=== PATIENT | female | born 1960 | race Caucasian/White ===

== ENCOUNTER 2018-07-18 19:55 | Emergency (ER) | payer OTHER, SELFPAY ==
[2018-07-18 19:58] VITALS: BP 134/74; PULSE 71; RESP 20; TEMP 36.1
[2018-07-18 20:02] VITALS: O2SAT 100
--- NOTE | 2018-07-18 20:03 | DI.RAD.S_ITS ---
PROCEDURE: XR RIBS LT MIN 3V W CXR1V INDICATIONS: fall, lt rib pain, difficulty breathing TECHNIQUE: 2 views of the left ribs were acquired, along with a single view chest. COMPARISON: None. FINDINGS: Surgical changes and devices: None. Bones and chest wall: No fractures or dislocations. No suspicious bony lesions. Overlying soft tissues appear unremarkable. Lungs and pleura: No pleural effusions or pneumothorax. Lungs appear clear. Mediastinum: Mediastinal contours appear normal. Heart size is normal. IMPRESSION: No displaced rib fractures visualized. Dictated by: Minerva Flores M.D. on 07/18/2018 at 20:25 Approved by: Minerva Flores M.D. on 07/18/2018 at 20:26
[2018-07-18 21:18] VITALS: BP 125/75; PULSE 64; RESP 14; O2SAT 100
--- NOTE | 2018-07-18 22:03 | PC.NURSE ---
fell into handrail struck lt side ribs c/o worsening lt rib pain today radiates to upper chest/back lung sounds clear no contusion/deformity or other visual sign of injury
--- NOTE | 2018-07-18 23:10 | ED.CHESTPAIN ---
HPI - Chest Pain General Chief Complaint: Extremity Injury, Upper Stated Complaint: fall Thursday, left side rib pain Time Seen by Provider: 07/18/18 22:58 Source: patient and family (daughter) Mode of arrival: ambulatory Limitations: no limitations History of Present Illness HPI narrative: This is a 58-year-old female comes to the emergency department with complaint of left-sided rib pain. Patient states that on the she was at work. She was walking when her foot slipped on the edge of a stair and she fell into it this tear post on her left side. Patient states she did not fall down the stairs. She did not hit her head she has no neck or back pain. Her pain is the left ribs below the armpit and into the side. She has not noticed any bruising or skin color changes. It is painful to take a deep breath. 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 She has not taken anything for pain. She states movement such as moving her arm above her head, rotating her arm or washing or cleaning things with that side is quite uncomfortable. If she coughs or sneezes it is also quite painful. She has not had any difficulty breathing otherwise. She is not coughing anything up. No passing out. No other GI or urinary issues. Related Data Allergies Allergy/AdvReac Type Severity Reaction Status Date / Time codeine AdvReac Verified 07/18/18 20:01 Review of Systems Review of Systems All systems reviewed & are unremarkable except as noted in HPI and below ENT Ears, Nose, Mouth, and Throat: Denies neck pain Cardiovascular Reports chest pain, Denies syncope, Denies rapid heart rate, Denies radiating jaw, neck or arm pain and Denies dyspnea Respiratory Denies chest congestion, Denies cough, Denies hemoptysis, Reports pain on inspiration, Reports pain with cough, Denies dyspnea and Denies wheezing Gastrointestinal Gastrointestinal: Denies abdominal pain, Denies diarrhea, Denies nausea and Denies vomiting Musculoskeletal Denies back pain, Denies arthralgias, Reports limited range of motion, Denies muscle weakness, Denies neck pain, Denies numbness and Denies radiating pain into limb Integumentary/Breasts Denies rash, Denies unusual bruising and Denies wounds Neurologic Denies syncope and Denies numbness Allergic/Immunologic Denies wheezing Exam Narrative Exam Narrative: GENERAL: Alert and oriented x three, thin, well-appearing female in mild distress. HEENT: Head normocephalic, atraumatic, EOMI, pupils reactive, face symmetric, moist mucous membranes NECK: Supple, full range of motion CARDIOVASCULAR: Regular rate and rhythm without murmurs, rubs or gallops. RESPIRATORY: Breath sounds equal bilaterally, no wheezes rales or rhonchi. Patient does not have any bruising or skin color changes to the chest or back. She does have some tenderness over the rib 5 and 6 region on the lateral ankle. No crepitus, no subcutaneous emphysema is. ABDOMEN: Soft, nontender. Normoactive bowel sounds all 4 quadrants. No guarding or rebound, rigidity, no mass BACK: No cervical, thoracic or lumbar vertebral point tenderness. Patient has normal range of motion. Muscle strength is 5/5 in upper and lower extremities. EXTREMITIES: Normal range of motion, no clubbing or edema. Neurovascularly intact NEUROLOGICAL: Cranial nerves II through XII grossly intact. Moving all extremities SKIN: Warm, dry, no petechiae, no rashes or lesions. Initial Vital Signs Initial Vital Signs: Vital Signs Temperature 97.0 F L 07/18/18 19:58 Pulse Rate 71 07/18/18 19:58 Respiratory Rate 20 07/18/18 19:58 Blood Pressure 134/74 07/18/18 19:58 Course Orders Ordered: ED Orders 07/18/18 20:03 XR ribs LT min 3V w CXR1V Stat Vital Signs - 8 hr 07/18/18 19:58 07/18/18 20:02 07/18/18 21:18 Temperature 97.0 F L Pulse Rate 71 64 Respiratory Rate 20 14 Blood Pressure 134/74 Blood Pressure [Right Arm] 125/75 Pulse Oximetry 100 100 MDM - Chest Pain Imaging Data Ribs w/ CXR: Radiologist's impression: [address] [address] XRay Report Signed Patient: Shital Deal LMR#: [id number] : 1Acct:[id number] Age/Sex: 58 / FDate of Service: 07/18/18 Loc: ED Accession Number: [id number] Procedure: XR ribs LT min 3V w CXR1V Ordering Provider: Chinmay Sibley PROCEDURE: XR RIBS LT MIN 3V W CXR1V INDICATIONS: fall, lt rib pain, difficulty breathing TECHNIQUE: 2 views of the left ribs were acquired, along with a single view chest. COMPARISON: None. FINDINGS: Surgical changes and devices: None. Bones and chest wall: No fractures or dislocations. No suspicious bony lesions. Overlying soft tissues appear unremarkable. Lungs and pleura: No pleural effusions or pneumothorax. Lungs appear clear. Mediastinum: Mediastinal contours appear normal. Heart size is normal. IMPRESSION: No displaced rib fractures visualized. Dictated by: Minerva Flores M.D. on 07/18/2018 at 20:25 Approved by: Minerva Flores M.D. on 07/18/2018 at 20:[address] [facility] Narrative Medical decision making narrative: Clinically patient appears to be rib fracture. Chest x-ray does not show any pneumothorax no clear rib fractures better displaced. Patient defers any prescription medication for pain. She was at work when this occurred so discussed that she may wish to fill out L and I form and was referred to registration. She was given incentive spirometer. Also discussed that she can splint with a pillow for similar object when she cough is or sneezes. Discharge Plan Departure Patient Disposition: Home Clinical Impression: Closed rib fracture Discharge Date/Time: 07/19/18 00:36 Interventions: ED Discharge Assessment Last Done: 07/19/18 00:09 Instructions: DI for Rib Fracture Activity Restrictions/Additional Instructions: Follow-up with for recheck in the next 5-7 days if you're not having any improvement in symptoms. You may take ibuprofen and/or Tylenol as needed for pain. Use incentive spirometer once hourly. Use a pillow or similar object to splinter side if you're going to cough, sneeze or take deep inhalations. Return to the emergency department for fevers, new shortness of breath, chest pain that is spreading, for coughing up blood or having other new or concerning symptoms.
--- NOTE | 2018-07-19 09:18 | PC.NURSE ---
pt arrived to ed, wanting note for no workfor 2 days, given by dr. yost
== END 2018-07-19 00:36 | disposition home or self-care (01) ==
PROVIDERS: Emergency Provider Emergency Medicine; PCP Family Medicine
DX: S22.32XA Fracture of one rib, left side, initial encounter for closed fracture (principal); W01.198A Fall on same level from slipping, tripping and stumbling with subsequent striking against other object, initial encounter
CPT/HCPCS: 71101; 99282; 99283

== ENCOUNTER 2019-03-25 22:00 | Emergency (ER) | payer OTHER, MEDICAID, SELFPAY ==
[2019-03-25 22:05] VITALS: BP 125/78; PULSE 52; RESP 18; TEMP 36.5; O2SAT 100; BMI 22.1
[2019-03-25 22:08] VITALS: BP 125/78; PULSE 62; RESP 15; TEMP 36.5; O2SAT 100
--- NOTE | 2019-03-25 22:18 | ED.WOUNDLAC ---
HPI - Wound/Laceration General Chief Complaint: Wound/Laceration Stated Complaint: RIGHT HAND INDEX FINGER HAS GLASS IN IT Time Seen by Provider: 03/25/19 22:18 Source: patient Mode of arrival: ambulatory Limitations: no limitations History of Present Illness HPI narrative: Patient is a 58-year-old female here for evaluation of an injury she sustained to her right index finger. Patient states that a wine glass broke and she was using the towel that the glass was in and she thinks that she has a piece of glass stuck in the end of her finger. Related Data Allergies Allergy/AdvReac Type Severity Reaction Status Date / Time codeine AdvReac Verified 07/18/18 20:01 Review of Systems Musculoskeletal Denies myalgias, Denies arthralgias and Denies tingling Integumentary/Breasts Comments: Piece of glass stuck in the right index finger Neurologic Denies tingling Hematologic/Lymphatic Denies easy bleeding and Denies easy bruising PFSH Surgical History No pertinent past surgical history (Acute) Social History lives independently: Yes Exam Initial Vital Signs Initial Vital Signs: Vital Signs Temperature 97.7 F 03/25/19 22:05 Pulse Rate 52 L 03/25/19 22:05 Respiratory Rate 18 03/25/19 22:05 Blood Pressure 125/78 03/25/19 22:05 Pulse Oximetry 100 03/25/19 22:05 Const General: cooperative, comfortable, well developed and well groomed Skin Lesions: no lesions Rashes: no rashes Neuro Sensory Exam: no sensory deficits noted Extrem General: normal to inspection and capillary refill normal Course Vital Signs - 8 hr 03/25/19 22:05 03/25/19 22:08 03/25/19 22:54 Temperature 97.7 F 97.7 F 97.5 F L Pulse Rate 52 L 62 56 L Respiratory Rate 18 15 18 Blood Pressure 125/78 106/59 L Blood Pressure [Right Arm] 125/78 Pulse Oximetry 100 100 56 L MDM - Wound/Laceration MDM Narrative Medical decision making narrative: Unable to realize any foreign body under magnification of the right index finger. It does appear that she has the nail from the nail bed at the very distal aspect of the index finger. I suspect this may be causing her discomfort. No x-ray warranted. No antibiotic warranted. Patient was given return precautions and follow-up instructions. She expressed understanding and agreement with plan. Discharge Plan Departure Patient Disposition: Home Clinical Impression: Nailbed injury Discharge Date/Time: 03/25/19 22:55 Interventions: ED Discharge Assessment Last Done: 03/25/19 22:54 Activity Restrictions/Additional Instructions: You can wash your hands like normal. You can use soap and water like normal. Use the tape like we discussed. Return to the emergency department for any new or worsening symptoms Referrals: Derrick Bradley MD [Primary Care Provider] -
[2019-03-25 22:54] VITALS: BP 106/59; PULSE 56; RESP 18; TEMP 36.4; O2SAT 56
== END 2019-03-25 22:55 | disposition home or self-care (01) ==
PROVIDERS: Emergency Provider Emergency Medicine; PCP Family Medicine
DX: S61.346A Puncture wound with foreign body of right little finger with damage to nail, initial encounter (principal); W25.XXXA Contact with sharp glass, initial encounter; W45.8XXA Other foreign body or object entering through skin, initial encounter
CPT/HCPCS: 99282; 99283

== ENCOUNTER → 2020-06-29 09:53 | Outpatient (CLI) | payer OTHER, MEDICAID, SELFPAY ==
[2020-06-29 12:34] LABS: Hemoglobin A1C% w Est Avg Glu 5.4 % (4.0-6.0)
[2020-06-29 12:52] LABS: Cholesterol 180 mg/dL (140-199); HDL Cholesterol 91 mg/dL (40-60); LDL Cholesterol Calculated 80 mg/dL (<100); Triglycerides 43 mg/dL (35-150)
[2020-06-29 13:09] LABS: Vitamin D 25 Hydroxy (D3) 29.1 ng/mL (30.0-100.0)
[2020-06-29 13:47] LABS: Hep C Virus Ab w/Reflex Quant NEGATIVE s/c (NEGATIVE)
== END ==
PROVIDERS: PCP Family Medicine; Referring Provider Family Medicine; Visit Provider Family Medicine
DX: Z00.01 Encounter for general adult medical examination with abnormal findings (principal)
CPT/HCPCS: 36415; 80061; 82306; 83036; 86803

== ENCOUNTER → 2020-07-27 09:45 | Outpatient (CLI) | payer OTHER, MEDICAID, SELFPAY | PROVIDERS: PCP Family Medicine; Referring Provider Family Medicine; Visit Provider Family Medicine | DX: Z13.820 Encounter for screening for osteoporosis (principal); M85.88 Other specified disorders of bone density and structure, other site; Z78.0 Asymptomatic menopausal state | CPT/HCPCS: 77080 ==

== ENCOUNTER 2021-04-29 21:11 | Emergency (ER) | payer OTHER, MEDICAID, SELFPAY ==
[2021-04-29 21:13] VITALS: BP 130/72; PULSE 74; RESP 16; TEMP 36; O2SAT 95; BMI 24.3
--- NOTE | 2021-04-29 22:58 | ED.SKABFB ---
HPI - Skin/Abscess/Foreign Bdy General Chief complaint: Skin/Abscess/Foreign Body Stated complaint: Spider bite on Lt arm Time Seen by Provider: 04/29/21 21:29 Source: patient Mode of arrival: Ambulatory History of Present Illness HPI narrative: 61-year-old female nonsmoker with history of vitamin-D deficiency presents with a chief complaint of a mildly painful skin lesion on the dorsum of her left forearm that has been present for the past few days. She states she thinks it initially had 2 small fang hess essentially but is now scab about the size of a dime. She denies any obvious injury or memory of a specific spider or insect bite. She denies any systemic symptoms such as fever, chills nor nausea or vomiting. She has no chest pain or shortness of breath. She denies any swelling, induration, fluctuance or red streaks. She is concerned because she has a person she works with says he had a family member with a spider bite that got really infected and required surgery. Related Data Home Medications Medication Instructions Recorded Confirmed No Known Home Medications 06/28/20 10/08/20 Allergies Allergy/AdvReac Type Severity Reaction Status Date / Time codeine AdvReac Verified 04/29/21 21:16 Review of Systems Review of Systems Narrative: GENERAL: Denies chills, fatigue, malaise, fever, sweats. HEENT: Denies sinus pain, ear pain, sore throat, difficulty swallowing, dizziness. RESPIRATORY: Denies dyspnea, cough, wheezing, hemoptysis, sputum. CARDIOVASCULAR: Denies chest pain, palpitations, orthopnea, edema, GASTROINTESTINAL: Denies nausea, vomiting, abdominal pain, diarrhea, constipation, melena. : Denies dysuria, frequency, incontinence, hematuria, urinary retention. MUSCULOSKELETAL: denies weakness, joint pain, or bony pain SKIN: See HPI NEUROLOGIC: Denies weakness, headache, numbness, change in speech, confusion, seizures, incoordination. PSYCHIATRIC: No concerning psychosocial issues. 12 point review of systems is negative except for those stated above Patient History Medical History Low back pain radiating to left lower extremity Muscle spasm Neck pain Overweight (BMI 25.0-29.9) Vitamin D deficiency Wound, open, ear, Eustachian tube Surgical History No pertinent past surgical history Family History Sister Cancer Mother Cancer Social History lives independently: Yes Smoking Status: Never smoker alcohol intake: never substance use type: does not use Smoking Status: Never smoker Substance Use Type: does not use Exam Narrative Exam Narrative: GEN: AOx3 and in mild distress EYES: Pupils are equal, round, and reactive to light and accommodation. Extraoccular muscles are intact bilaterally. There is no subconjunctival hemorrhage or exudate. CHEST: Lungs are clear to auscultation bilaterally and free of wheezes, rales, or rhonchi. Heart rate is regular rhythm, there are no murmurs, clicks, rubs, or gallops. There is no chest wall tenderness. ABD: Abdomen is soft and nontender. There is no guarding or rebound. Bowel sounds are normal in all 4 quadrants. There is no mass or organomegaly. EXT: Full painless ROM of all extremities with no loss of sensation or strength. SKIN: 1 x 1 cm painless scabbed lesion on dorsum of left forearm without induration, fluctuance, drainage or red streaks. Warm, pink, and dry. No erythema or rash Initial Vital Signs Initial Vital Signs: Vital Signs Temperature 96.8 F L 04/29/21 21:13 Pulse Rate 74 04/29/21 21:13 Respiratory Rate 16 04/29/21 21:13 Blood Pressure 130/72 04/29/21 21:13 Pulse Oximetry 95 04/29/21 21:13 Course Orders Ordered: Discontinued Medications Bacitracin (Bacitracin Oint 0.9 Gm Pckt) 1 applic TOP NOW ONE Stop: 04/29/21 23:09 Last Admin: 04/29/21 23:14 Dose: 1 applic Documented by: AUXIMENA Vital Signs Vital signs: Vital Signs - 8 hr 04/29/21 23:25 Pulse Rate 58 L Respiratory Rate 16 Blood Pressure 105/56 L Pulse Oximetry 100 MDM - Skin/Abscess/Foreign Bdy MDM Narrative Medical decision making narrative: Patient has a small, scabbed lesion on her forearm without any pain, induration, fluctuance or drainage. There is no surrounding erythema or red streaks. There is no evidence of ulceration. Return precautions given and questions answered to her apparent satisfaction Discharge Plan Departure Patient Disposition: Home Clinical Impression: Spider bite Qualifiers: Encounter type: initial encounter Injury intent: undetermined intent Qualified Code(s): T63.304A - Toxic effect of unspecified spider venom, undetermined, initial encounter Instructions: DI for Insect Bites and Stings Activity Restrictions/Additional Instructions: *You have been diagnosed with [spider bite with very reassuring exam, localized reaction] *What to do: *Please consider the use of a triple antibiotic ointment such as Neosporin applied twice daily for the next few days. *Please follow up with your primary care provider in 2-3 days, call for an appointment. Let them know you were seen in the Emergency Department and that we ask that you be seen in follow up. We will electronically transmit a record of today's note if your PCP is in our system *If you do not have a primary care provider please contact the [facility] Resource line at [phone]. They will ask some questions about your medical history and help get you set up with a doctor in the community. *Return to Emergency Department if you should have any new, worsening or concerning symptoms, such as [fever greater than 101 F, shaking chills, worsening pain, persistent vomiting or other bothersome symptoms] Prescriptions: No Action No Known Home Medications RF: 0 Referrals: Serafin Velazquez MD [Primary Care Provider] -
[2021-04-29] MEDS: BACITRACIN OINT 0.9 GM PCKT 1 APPLIC TOP (23:14)
[2021-04-29 23:25] VITALS: BP 105/56; PULSE 58; RESP 16; O2SAT 100
--- NOTE | 2021-04-29 23:25 | PC.NURSE ---
Bacitracin applied to L forearm and covered with gauze and gauze wrap
== END 2021-04-29 23:25 | disposition home or self-care (01) ==
PROVIDERS: Emergency Provider Emergency Medicine; PCP Family Medicine
DX: T63.304A Toxic effect of unspecified spider venom, undetermined, initial encounter (principal)
CPT/HCPCS: 99282

== ENCOUNTER 2022-02-11 09:31 | Emergency (ER) | payer OTHER, MEDICAID, SELFPAY ==
[2022-02-11 09:35] VITALS: BP 132/61; PULSE 63; RESP 16; TEMP 36.7; O2SAT 98; BMI 24.1
--- NOTE | 2022-02-11 09:52 | DI.RAD.S_ITS ---
PROCEDURE: XR HIP W PEL IF DONE LT 2V INDICATIONS: on going pain no recent injury TECHNIQUE: AP pelvis with lateral view(s) of the left hip(s). COMPARISON: [facility], , XR PELVIS WITH LATERAL HIP LEFT, 06/01/2019, 13:26. FINDINGS: Bones: No fractures or dislocations. Pelvic ring appears intact. No suspicious bony lesions. Soft tissues: The visualized bowel gas pattern is normal. No suspicious soft tissue calcifications. IMPRESSION: No acute fracture. No osseous lesion. If symptoms and/or clinical suspicion for pathology persist, further assessment with repeat, or advanced imaging (e.g., CT, MRI, or bone scan) may be helpful for further assessment. Dictated by: Lisa Norris M.D. on 02/11/2022 at 10:11 Approved by: Lisa Norris M.D. on 02/11/2022 at 10:12
--- NOTE | 2022-02-11 09:53 | ED_ITS ---
HPI - Extremity Injury (Lower) General Chief Complaint: Extremity Injury, Lower Stated Complaint: Varicose vein hurts, hip pain Time Seen by Provider: 02/11/22 09:46 Source: patient Mode of arrival: Ambulatory History of Present Illness HPI Narrative: Patient is a 61-year-old female who has history of chronic ongoing back issues presenting today with pain in her left hip radiating down to her toes. It appears that she has been seen by her primary care provider for this few times. She states that she has not had any injury. She has pain from her left hip all the way down to her toes. She says a few days ago she mopped the floor 3 times and then had to clean up the dog mass. She has not taken any Tylenol or ibuprofen. She feels like she has numbness in her 3rd and 4th toe. It does not hurt to move. She denies any back pain. Related Data Home Medications Medication Instructions Recorded Confirmed No Known Home Medications 06/28/20 07/15/21 Allergies Allergy/AdvReac Type Severity Reaction Status Date / Time codeine AdvReac Verified 07/15/21 15:02 Review of Systems Review of Systems Narrative: GENERAL: Denies chills,fever HEENT: Denies throat pain RESPIRATORY: Denies dyspnea, cough, wheezing CARDIOVASCULAR: Denies chest pain, palpitations GASTROINTESTINAL: Denies nausea, vomiting MUSCULOSKELETAL: See HPI SKIN: No rash, no laceration, no pruritus NEUROLOGIC: Denies weakness, dizziness, headache, numbness 8 point review of systems is negative except for those stated above and HPI Patient History Medical History Low back pain radiating to left lower extremity Muscle spasm Neck pain Overweight (BMI 25.0-29.9) Vitamin D deficiency Wound, open, ear, Eustachian tube Surgical History No pertinent past surgical history Family History Sister Cancer Mother Cancer Social History lives independently: Yes Smoking Status: Never smoker alcohol intake: never substance use type: does not use Smoking Status: Never smoker Substance Use Type: does not use Exam Initial Vital Signs Initial Vital Signs: Vital Signs Temperature 98.1 F 02/11/22 09:35 Pulse Rate 63 02/11/22 09:35 Respiratory Rate 16 02/11/22 09:35 Blood Pressure 132/61 02/11/22 09:35 Pulse Oximetry 98 02/11/22 09:35 GENERAL: Alert well-appearing 7-year-old female CARDIOVASCULAR: peripheral pulses in tact, cap refill <2 sec RESPIRATORY: No respiratory distress, speaks in full sentences without difficulty EXTREMITIES: Normal range of motion, no clubbing or edema. Neurovascularly intact Left hip pain with internal rotation legs are of equal length distal pedal pulses intact. NEUROLOGICAL: Cranial nerves II through XII grossly intact. Normal gait and speech. SKIN: Warm, dry, no petechiae, no rashes or lesions. Course Orders Ordered: ED Orders 02/11/22 09:52 XR hip w pel if done LT 2V Stat Vital Signs Vital signs: Vital Signs - 8 hr 02/11/22 09:35 02/11/22 10:43 Temperature 98.1 F Pulse Rate 63 64 Respiratory Rate 16 14 Blood Pressure 132/61 114/66 Pulse Oximetry 98 MDM - Extremity Injury (Lower) Imaging Data Extremity x-ray #1: Radiologist's Impression: [address] [place] [id number] XRay Report Signed Patient: Shital Deal MR#: [id number] : 1960 Acct:[id number] Age/Sex: 61 / F Date of Service: 02/11/22 Loc: ED Accession Number: [id number] ?? Procedure: XR hip w pel if done LT 2V Ordering Provider: Yvrose Ivy D.O. PROCEDURE:? XR HIP W PEL IF DONE LT 2V ? INDICATIONS:? on going pain no recent injury ? TECHNIQUE:? AP pelvis with lateral view(s) of the left hip(s).? ? COMPARISON:? [facility], [facility], XR PELVIS WITH LATERAL HIP LEFT, 06/01/2019, 13:26. ? FINDINGS:? ? Bones:? No fractures or dislocations.? Pelvic ring appears intact.? No suspicious bony lesions.? ? Soft tissues:? The visualized bowel gas pattern is normal.? No suspicious soft tissue calcifications.? ? ? IMPRESSION:? No acute fracture. No osseous lesion. If symptoms and/or clinical suspicion for pathology persist, further assessment with repeat, or advanced imaging (e.g., CT, MRI, or bone scan) may be helpful for further assessment. ? ? Dictated by: Lisa Norris M.D. on 02/11/2022 at 10:11 ? ? Approved by: Lisa Norris M.D. on 02/11/2022 at 10:12 ? MDM Narrative Medical decision making narrative: According to records patient has had ongoing back pain radiating down her left leg. Had any imaging. She has not taken anything for pain she is offered Toradol and ibuprofen here. She is unsure if she wants anything. Seems to be consistent with sciatic like pain. No changes in bowel or bladder habits or signs of cauda equina syndrome. At this time recommend light stretching physical therapy possibly outpatient MRI. Discharge Plan Departure Patient Disposition: Home Clinical Impression: Sciatica Qualifiers: Laterality: left Qualified Code(s): M54.32 - Sciatica, left side Instructions: DI for Sciatica Activity Restrictions/Additional Instructions: *You have been diagnosed with left-sided sciatic *What to do: At this time I recommend increasing activity as tolerated. Light stretching as well. You may need physical therapy. If this continues I do recommend an outpatient MRI. *Continue to take medications as directed Ibuprofen 600 mg every 6-8 hours if needed for [id number] pain Tylenol 650 mg every 4-6 hours if needed for [id number]-[id number] pain *Follow up with your primary care provider in 2-3 days or call [phone] *Return to ER if you should have increasing pain leg weakness loss of urine or any new, worsening or concerning symptoms Prescriptions: No Action No Known Home Medications 0RF Referrals: Serafin Velazquez MD [Primary Care Provider] -
[2022-02-11 10:43] VITALS: BP 114/66; PULSE 64; RESP 14
== END 2022-02-11 10:43 | disposition home or self-care (01) ==
PROVIDERS: Emergency Provider Emergency Medicine; PCP Family Medicine
DX: M54.32 Sciatica, left side (principal)
CPT/HCPCS: 73502; 99281; 99283

== ENCOUNTER → 2022-05-05 09:20 | Outpatient (CLI) | payer OTHER, MEDICAID, SELFPAY ==
[2022-05-05 11:15] LABS: COVID19 -Nasal RAPID Negative (Negative)
== END ==
PROVIDERS: PCP Family Medicine; Visit Provider Surgery
DX: Z20.822 Contact with and (suspected) exposure to COVID-19 (principal); Z01.812 Encounter for preprocedural laboratory examination
CPT/HCPCS: 87635; C9803

== ENCOUNTER 2022-05-06 10:19 | Day surgery (SDC) | payer OTHER, MEDICAID, SELFPAY ==
[2022-05-06] VITALS (7 sets, daily range): BP systolic 93–110; BP diastolic 46–68; PULSE 42–55; RESP 14–19; TEMP 36.2–36.9; O2SAT 98–100; BMI 23.6
--- NOTE | 2022-05-06 | PATH_ITS ---
[facility] Accession Number: [id number] . 01 Material submitted: . rectum - RECTAL POLYP . 01 Clinical history: . SDC . 01 Diagnosis: Rectal polyp, Biopsy: Tubular adenoma. [facility] 05/08/2022 1022 Local . 01 Electronically signed: . Harsh Rodrigues MD, PhD, Pathologist NPI- [id number] . 01 Gross description: . RECTAL POLYP: Received in formalin are 3 fragment(s) of buchanan, soft tissue measuring 0.7 x 0.4 x 0.4 cm to 0.3 x 0.2 x 0.2 cm submitted entirely in 1 cassette(s) /CPE 05/07/2022 0753 Local . 01 Pathologist provided ICD-10: D12.8 . 01 CPT . 126409 Specimen Comment: A courtesy copy of this report has been sent to [phone] Performed at: 01 [facility] [address] [place] [address], [place], [place] [id number] MD Femi Mckeon MD Phone: [phone]
[2022-05-06] MEDS: LACTATED RINGERS 1,000 ML 200 ML IV (10:49)
--- NOTE | 2022-05-06 11:00 | PM.HP.1 ---
History of Present Illness History of Present Illness Date Patient Seen: 05/06/22 Time Patient Seen: 11:00 Chief complaint: SDC Narrative: The patient presents for colorectal screening. They have never had any previous examination for such. No personal or family history of colon cancer. She has been having intermittent bright red blood per rectum painless. No nausea vomiting. No unintentional weight loss. Patient History Medical History Low back pain radiating to left lower extremity Muscle spasm Neck pain Overweight (BMI 25.0-29.9) Vitamin D deficiency Wound, open, ear, Eustachian tube Surgical History History of dilatation and curettage History of ear surgery Hx of knee surgery Family & Social History Family History Sister Cancer Mother Cancer Social History: household members family lives independently Yes Tobacco & Substance use: Smoking Status Never smoker alcohol intake never alcohol intake frequency other Substance Use Type does not use Meds Home Medications and Allergies Home Medications Medication Instructions Recorded Confirmed Type Vitamin D3 1 tab DAILY 05/06/22 05/06/22 History Allergies Allergy/AdvReac Type Severity Reaction Status Date / Time codeine AdvReac Verified 05/06/22 10:32 Exam Vital Signs (past 8 hours): - 05/06/22 10:46 Temperature 98.4 F Pulse Rate 55 L Respiratory Rate 16 Blood Pressure 106/68 Pulse Oximetry 100 Oxygen Delivery Method Room Air Oxygen Delivery Method Room Air Narrative Exam Narrative: General adult woman alert oriented no acute distress Abdomen soft nontender nondistended Assessment & Plan Assessment & Plan narrative: The patient requires colorectal screening and colonoscopy is recommended. Technical details were discussed. Risks, benefits, alternatives explained. Risks including but not limited to myocardial infarction, aspiration, bleeding, pain, missed lesion, incomplete examination, need for further radiographic studies, colonic perforation, and need for major abdominal surgery were discussed. All questions were answered to their satisfaction, and they are in agreement with this plan. Time Spent With Patient Critical Care time: I spent a total of [] minutes of critical care time on this patient's care today; this time is exclusive of procedural time.
[2022-05-06] MEDS: fentaNYL 250 MCG/5 ML INJ IV (11:48)
[2022-05-06] MEDS: MIDAZOLAM 5 MG/5 ML VIAL IV (11:48)
--- NOTE | 2022-05-06 11:52 | PM.OP.COLON ---
Operative Date/Time/Diagnoses Date of procedure: 05/06/22 Time of procedure: 11:52 Pre-op diagnosis: Screening/rectal bleeding Post-op diagnosis: same Procedure & Clinicians Study performed: Colonoscopy and polypectomy Same procedure as scheduled: Yes Indications: Screening, rectal bleeding Surgeon: Tor Carreon Procedure Notes Procedure in detail: Medications: Conscious sedation using a 7 mg IV midazolam and 200 mcg IV of fentanyl The history and physical was performed/updated and the patient is ASA class is 1. The procedure was discussed in detail with the patient. Potential risks complications including infection, bleeding, missed diagnosis, perforation, need for surgery, and were explained. Their questions were answered and informed consent was obtained. Patient was brought to the procedure room and placed standard monitoring equipment. The patient's vital signs were monitored continuously throughout the entire procedure. Prior to starting time-out was performed. The patient was placed in the left lateral recumbent position. Procedural sedation was administered. Examination began with a thorough inspection of the perianal area there was no evidence of fissures, fistulae, external hemorrhoids or cutaneous malignancy. The colonoscopy scope was then placed into the anal canal and was advanced to the cecum, which was identified by the ileocecal valve, the appendiceal orifice and the confluence of the taenia. The scope was then slowly withdrawn examining colon thoroughly in all directions, irrigating it of any residual stool. FINDINGS 1. Distal rectum-1 cm pedunculated polyp removed with hot snare 2. Normal healthy colon The patient tolerated the procedure well. They will be discharged once criteria are met. The prep was of good/excellent quality. The withdrawl time was 11 minutes. The sedation time was 35 minutes. Specimen(s): other (Rectal polyp) Complications: none Impression: Colonic polyp Post-procedure Recommendations: Colonoscopy in 5 years Disposition: same day surgery
== END 2022-05-06 12:33 | disposition home or self-care (01) ==
PROVIDERS: PCP Family Medicine; Referring Provider Surgery; Visit Provider Surgery
PROC: 0DJD8ZZ Inspection of Lower Intestinal Tract, Via Natural or Artificial Opening Endoscopic (ICD-10-PCS; CPT 45378; principal; 2022-05-06 11:15)
DX: D12.8 Benign neoplasm of rectum (principal)
CPT/HCPCS: 45385; 99152; 99153; J2250; J3010

== ENCOUNTER 2022-11-27 06:42 | Emergency (ER) | payer OTHER, MEDICAID, SELFPAY ==
[2022-11-27 06:52] VITALS: BP 109/64; PULSE 68; RESP 18; TEMP 36.6; O2SAT 100; BMI 24.9
--- NOTE | 2022-11-27 07:07 | ED_ITS ---
HPI - Fall General Chief Complaint: Fall Stated Complaint: fall yesterday left side pain Time Seen by Provider: 11/27/22 06:54 Source: patient Mode of arrival: Ambulatory History of Present Illness HPI Narrative: 62-year-old female presenting following a fall that occurred approximately 12 hours prior to presentation. Patient reports that she was getting now not the table onto a chair after cleaning chandelier, fell from the chair to the floor under the left side. Patient has pain localized to the left side of the chest, left wrist. Patient has been ambulatory. Related Data Home Medications Medication Instructions Recorded Confirmed Vitamin D3 1 tab DAILY 05/06/22 05/06/22 Allergies Allergy/AdvReac Type Severity Reaction Status Date / Time codeine AdvReac Verified 05/06/22 10:32 Patient History Medical History Low back pain radiating to left lower extremity Muscle spasm Neck pain Overweight (BMI 25.0-29.9) Vitamin D deficiency Wound, open, ear, Eustachian tube Surgical History History of dilatation and curettage History of ear surgery Hx of knee surgery Family History Sister Cancer Mother Cancer Social History household members: family lives independently: Yes Smoking Status: Never smoker alcohol intake: never substance use type: does not use Smoking Status: Never smoker alcohol intake frequency: other Substance Use Type: does not use Exam Narrative Exam Narrative: Vitals reviewed. Nursing note reviewed Constitutional: interactive HENT: Moist mucous membranes EYES: No scleral icterus NECK: no masses CV: Well perfused peripherally, no cyanosis present PULM: Unlabored respirations, symmetric chest rise ABD: Non-distended MS: No gross deformities, no asymmetric edema noted SKIN: Warm and dry. PSYCH: Appropriate affect NEURO: Follows simple commands, moves extremities, interactive with exam Initial Vital Signs Initial Vital Signs: Vital Signs Temperature 98 F 11/27/22 06:52 Pulse Rate 68 11/27/22 06:52 Respiratory Rate 18 11/27/22 06:52 Blood Pressure 109/64 11/27/22 06:52 Pulse Oximetry 100 11/27/22 06:52 Oxygen Delivery Method Room Air 11/27/22 06:52 Course Orders Ordered: ED Orders 11/27/22 07:14 CXR [XR chest 2V] Stat XR wrist LT min 3V Stat Discontinued Medications Ketorolac Tromethamine (Ketorolac 30 Mg/Ml Vial) 30 mg IM NOW ONE Stop: 11/27/22 07:36 Last Admin: 11/27/22 07:41 Dose: 30 mg Documented By: RINA Vital Signs Vital signs: Vital Signs - 8 hr 11/27/22 06:52 Temperature 98 F Pulse Rate 68 Respiratory Rate 18 Blood Pressure 109/64 Pulse Oximetry 100 Oxygen Delivery Method Room Air MDM - Fall Lab Data Labs: Urine Dip Bedside Urine Glucose Negative Bedside Urine Bilirubin - Negative Bedside Urine Ketone - Negative Urine Specific [place] 1.015 Bedside Urine Occult Blood - Negative Bedside Urine pH 7.0 Bedside Urine Protein - Negative Bedside Urine Urobilinogen - Negative Bedside Urine Nitrite - Negative Bedside Urine Leukocytes - Negative Esterase MDM Narrative Medical decision making narrative: 62-year-old female presenting with pain localized to the left chest after a fall that occurred 12 hours not to presentation. On presentation, vital signs reassu ring as above. Physical exam notable for well-appearing 62-year-old female who is in no acute distress, grossly reassuring cardiopulmonary exam, benign abdomen, focal tenderness over the left lateral chest wall, left wrist. Initial concern for acute traumatic injury including fracture, dislocation, pneumothorax, solid organ injury, MSK strain. Two-view chest x-ray and x-ray left wrist obtained to further evaluate for acute traumatic injury. Patient did not require oxygen in the emergency department. X-rays without evidence of acute traumatic injury. Given patient's persistent pain localized to the left lateral chest wall and left wrist, discussed plan for supportive cares with incentive spirometry, close outpatient follow up. Discussed possibility of occult rib fracture/nondisplaced rib fracture. Patient was placed in a thumb spica splint and instructed to follow up for repeat x-ray in 1 week. Discussed possibility of occult wrist fracture and importance of outpatient follow up for repeat x-ray in approximately 1 week. Return precautions discussed. Discharge Plan Departure Patient Disposition: Home Clinical Impression: Rib pain on left side, Acute wrist pain Activity Restrictions/Additional Instructions: *You have been diagnosed with rib pain and wrist pain after fall. *What to do: Please use your incentive spirometer as discussed. Your xray was reassuring but you may have occult rib fractures as discussed. Please return to the emergency department if you develop worsening shortness of breath/productive cough/fevers. Please follow up with within 1 week for repeat x-ray of your left wrist, as discussed, you may have an occult fracture. Please use the wrist splint as discussed. *Please follow up with your primary care provider in 2-3 days, call for an appointment. Let them know you were seen in the Emergency Department and that we ask that you be seen in follow up. We will electronically transmit a record of today's note if your PCP is in our system *Return to Emergency Department if you should have any new, worsening or concerning symptoms, such as [fever greater than 101 F, shaking chills, worsening pain, persistent vomiting or other bothersome symptoms] Prescriptions: No Action Vitamin D3 1 tab DAILY Patient Comments: takes when remembers it Referrals: Serafin Velazquez MD [Primary Care Provider] - Stand Alone Forms: Patient Portal/API
--- NOTE | 2022-11-27 07:14 | DI.RAD.S_ITS ---
PROCEDURE: XR WRIST LT MIN 3V INDICATIONS: wrist pain, eval fx TECHNIQUE: 4 views of the wrist were acquired. COMPARISON: None. FINDINGS: Bones: No fractures or dislocations. No suspicious bony lesions. Soft tissues: No suspicious soft tissue calcifications. IMPRESSION: No acute osseous abnormality identified. Dictated by: Kelvin Hargrove M.D. on 11/27/2022 at 8:22 Approved by: Kelvin Hargrove M.D. on 11/27/2022 at 8:24
--- NOTE | 2022-11-27 07:14 | DI.RAD.S_ITS ---
PROCEDURE: XR CHEST 2V INDICATIONS: eval rib fx TECHNIQUE: 2 views of the chest were acquired. COMPARISON: None. FINDINGS: Surgical changes and devices: None. Lungs and pleura: Lungs are clear. No pleural effusions or pneumothorax. Mediastinum: Mediastinal contours are normal. Heart size is normal. Bones and chest wall: No suspicious bony abnormalities. Soft tissues appear unremarkable. IMPRESSION: No acute cardiopulmonary abnormality. Dictated by: Kelvin Hargrove M.D. on 11/27/2022 at 8:24 Approved by: Kelvin Hargrove M.D. on 11/27/2022 at 8:24
[2022-11-27] MEDS: KETOROLAC 30 MG/ML VIAL IM (07:41)
[2022-11-27 08:59] VITALS: BP 131/67; PULSE 59; RESP 16; O2SAT 100
--- NOTE | 2022-11-27 09:01 | PC.NURSE ---
Left thumb wrist splint applied to pt per verbal order and pt given incentive spirometer. Pt demonstrated proper use of IS and instructed to use 10x per hour for PNA prevention.
== END 2022-11-27 09:02 | disposition home or self-care (01) ==
PROVIDERS: Emergency Provider Emergency Medicine; PCP Family Medicine
DX: R07.81 Pleurodynia (principal); M25.532 Pain in left wrist; W07.XXXA Fall from chair, initial encounter
CPT/HCPCS: 71046; 73110; 81003; 96372; 99283; J1885

== ENCOUNTER → 2022-12-05 15:30 | Outpatient (CLI) | payer OTHER, MEDICAID, SELFPAY ==
--- NOTE | 2022-12-05 15:33 | DI.RAD.S_ITS ---
PROCEDURE: XR WRIST LT MIN 3V INDICATIONS: pain, fall. TECHNIQUE: 4 views of the wrist were acquired. COMPARISON: [facility], CR, XR WRIST LT MIN 3V, 11/27/2022, 7:15. FINDINGS: Bones: No fractures or dislocations. No suspicious bony lesions. Scaphoid view: Unremarkable. Soft tissues: No suspicious soft tissue calcifications. IMPRESSION: No acute or healing fracture. Dictated by: Chinmay Solis M.D. on 12/05/2022 at 16:17 Approved by: Chinmay Solis M.D. on 12/05/2022 at 16:18
--- NOTE | 2022-12-05 15:33 | DI.RAD.S_ITS ---
PROCEDURE: XR WRIST RT MIN 3V INDICATIONS: fell 1 wk ago. pain distal ulna TECHNIQUE: 4 views of the wrist were acquired. COMPARISON: [facility], CR, XR WRIST LT MIN 3V, 11/27/2022, 7:15. FINDINGS: Bones: Nondisplaced ulnar styloid fracture. Scaphoid view: Unremarkable. Soft tissues: No suspicious soft tissue calcifications. IMPRESSION: Nondisplaced ulnar styloid fracture. Dictated by: Chinmay Solis M.D. on 12/05/2022 at 16:18 Approved by: Chinmay Solis M.D. on 12/05/2022 at 16:19
== END ==
PROVIDERS: PCP Family Medicine; Referring Provider Family Medicine; Visit Provider Family Medicine
DX: S66.911A Strain of unspecified muscle, fascia and tendon at wrist and hand level, right hand, initial encounter (principal); S52.614A Nondisplaced fracture of right ulna styloid process, initial encounter for closed fracture; S60.212D Contusion of left wrist, subsequent encounter; W19.XXXA Unspecified fall, initial encounter
CPT/HCPCS: 73110

== ENCOUNTER → 2022-12-24 16:11 | Outpatient (CLI) | payer OTHER, MEDICAID, SELFPAY ==
--- NOTE | 2022-12-24 16:13 | DI.RAD.S_ITS ---
PROCEDURE: XR WRIST RT MIN 3V INDICATIONS: Follow-up cast removal TECHNIQUE: 4 views of the wrist were acquired. COMPARISON: [facility], CR, XR WRIST RT MIN 3V, 12/05/2022, 15:42. [facility], CR, XR WRIST LT MIN 3V, 12/05/2022, 15:42. [facility], CR, XR WRIST LT MIN 3V, 11/27/2022, 7:15. FINDINGS: Bones: No fractures or dislocations. No suspicious bony lesions. Background osteoarthritic changes redemonstrated. Scaphoid view: Intact scaphoid. Soft tissues: No suspicious soft tissue calcifications. IMPRESSION: 1. No definite acute or healing fracture. Dictated by: Pato Griffin [facility] Interpreted: Chinmay Solis MD on 12/24/2022 at 16:31 Approved by: Chinmay Solis M.D. on 12/26/2022 at 9:16
== END ==
PROVIDERS: PCP Family Medicine; Referring Provider Nurse Practitioner Family; Visit Provider Nurse Practitioner Family
DX: S69.91XA Unspecified injury of right wrist, hand and finger(s), initial encounter (principal); X58.XXXA Exposure to other specified factors, initial encounter
CPT/HCPCS: 73110

== ENCOUNTER → 2023-03-03 08:27 | Outpatient (CLI) | payer OTHER, MEDICAID, SELFPAY ==
[2023-03-03 09:24] LABS: Add Manual Diff / Slide Review NO; Basophils Absolute Auto 0 /uL (0-100); Basophils Percent Auto 0.7 % (0-2); Eosinophils Absolute Auto 100 /uL (0-450); Eosinophils Percent Auto 2.7 % (2-4); Hematocrit 37.8 % (36-46); Hemoglobin 12.7 g/dL (12.0-16.0); Lymphocytes Absolute Auto 800 /uL (1100-4500); Lymphocytes Percent Auto 20.2 % (25-40); Mean Corpuscular HGB Conc 33.5 % (30-36); Mean Corpuscular Hemoglobin 31.1 PG (26-34); Mean Corpuscular Volume 92.8 fL (80-100); Monocytes Absolute Auto 400 /uL (0-900); Monocytes Percent Auto 9.3 % (3-14); Neutrophils Absolute Auto 2700 /uL (1500-7000); Neutrophils Percent Auto 67.1 % (50-75); Platelet Count 158 X10^3/uL (150-400); Red Blood Cell Count 4.07 X10^6/uL (4.0-5.2); Red Cell Distribution Width 13.6 % (11.6-14.8); White Blood Cell Count 4.1 X10^3/uL (4.5-11.0)
--- NOTE | 2023-03-03 09:28 | DI.RAD.S_ITS ---
PROCEDURE: XR LUMBAR SPINE 2-3V INDICATIONS: low back pain, worse on left TECHNIQUE: 3 views of the lumbar spine were acquired. COMPARISON: None. FINDINGS: Bones: 5 [id number] vertebrae are present. There is normal bony alignment. No acute vertebral body compression fractures. No suspicious bony lesions. Mild multilevel mid and lower lumbar spondylosis with mild associated facet arthropathy. Soft tissues: Overlying bowel gas pattern is normal. No suspicious soft tissue calcifications. IMPRESSION: Mild multilevel mid and lower lumbar spondylosis. No acute osseous abnormality seen. Dictated by: Librado Khan M.D. on 03/03/2023 at 11:11 Approved by: Librado Khan M.D. on 03/03/2023 at 11:12
[2023-03-03 09:34] LABS: Chloride 107 mmol/L (98-107); HEMOLYSIS < 15 (0-50)
[2023-03-03 09:36] LABS: Alanine Aminotransferase 20 IU/L (<35); Albumin 4.1 g/dL (3.5-5.0); Albumin Globulin Ratio 1.4 (1.0-2.8); Alkaline Phosphatase 67 U/L (38-126); Aspartate Aminotransferase 25 IU/L (14-36); Blood Urea Nitrogen 19 mg/dL (7-17); Carbon Dioxide 30 mmol/L (22-32); Cholesterol 153 mg/dL (140-199); Estimated Glomerular Filt Rate > 60 mL/min (>60); Globulin 2.9 g/dL (1.7-4.1); Glucose 93 mg/dL (80-110); HDL Cholesterol 63 mg/dL (40-60); LDL Cholesterol Calculated 81 mg/dL (<100); Potassium 4.4 mmol/L (3.4-5.1); Sodium 141 mmol/L (137-145); Triglycerides 43 mg/dL (35-150)
[2023-03-03 10:07] LABS: TSH w/ Reflex to FT4 1.32 uIU/mL (0.47-4.68)
== END ==
PROVIDERS: PCP Family Medicine; Referring Provider Family Medicine; Visit Provider Family Medicine
DX: E55.9 Vitamin D deficiency, unspecified (principal); E66.3 Overweight; N95.1 Menopausal and female climacteric states; M54.50 Low back pain, unspecified; M47.816 Spondylosis without myelopathy or radiculopathy, lumbar region
CPT/HCPCS: 36415; 72100; 80053; 80061; 82306; 84443; 85025

== ENCOUNTER 2023-03-25 21:52 | Emergency (ER) | payer OTHER, MEDICAID, SELFPAY ==
--- NOTE | 2023-03-25 22:02 | ED.GENADULT ---
HPI - General Adult General Chief complaint: Eye Problems Stated complaint: vision problems Time Seen by Provider: 03/25/23 21:56 History of Present Illness HPI narrative: 62-year-old female nonsmoker without chronic medical history presents at the request of her primary care provider for the chief complaint of floaters and flashers visualized in her right eye only earlier today. She currently is not having symptoms. She denies any trauma or injury. She denies any pain. She has no blurring or double vision. She does not wear contacts. She denies drainage or watering. She denies dizziness, weakness or lightheadedness. She has no trouble with speech or facial droop. She denies difficulty with speech or ambulation. Related Data Home Medications Medication Instructions Recorded Confirmed Vitamin D3 1 tab DAILY 05/06/22 03/03/23 turmeric 400 mg capsule mg PO 01/01/23 01/01/23 Allergies Allergy/AdvReac Type Severity Reaction Status Date / Time codeine AdvReac Nausea/vomi Verified 03/25/23 22:12 ting Review of Systems Review of Systems Narrative: GENERAL: Denies chills, fatigue, malaise, fever, sweats. HEENT: See HPI RESPIRATORY: Denies dyspnea, cough, wheezing, hemoptysis, sputum. CARDIOVASCULAR: Denies chest pain, palpitations, orthopnea, edema, GASTROINTESTINAL: Denies nausea, vomiting, abdominal pain, diarrhea, constipation, melena. : Denies dysuria, frequency, incontinence, hematuria, urinary retention. MUSCULOSKELETAL: denies weakness, joint pain, or bony pain SKIN: Denies rash, skin lesions, or other NEUROLOGIC: See HPI PSYCHIATRIC: No concerning psychosocial issues. 12 point review of systems is negative except for those stated above Patient History Medical History Acute low back pain due to trauma Acute neck pain Acute pain of left hip Acute thoracic back pain Left wrist pain Low back pain radiating to left lower extremity Muscle spasm Neck pain Overweight (BMI 25.0-29.9) Post-traumatic headache Vitamin D deficiency Wound, open, ear, Eustachian tube Surgical History History of dilatation and curettage History of ear surgery Hx of knee surgery Family History Sister Cancer Mother Cancer Social History household members: family lives independently: Yes Smoking Status: Never smoker alcohol intake: never substance use type: does not use Smoking Status: Never smoker alcohol intake frequency: other Substance Use Type: does not use Exam Narrative Exam Narrative: GENERAL: [62] year old patient appears stated age. Well-developed patient, in mild distress. HEAD: Atraumatic. Normocephalic. EYES: Pupils equal round and reactive. Extraocular motions intact. No scleral icterus. No injection or drainage. No obvious abnormality on fundoscopic exam. No foreign body noted. Upper lid everted. No fluorescein uptake under UV light. Right eye IOP 19mmHg. Bedside ocular US without obvious abnormality ENT: Nose without bleeding, purulent drainage. Throat without erythema, tonsillar hypertrophy or exudate. Airway patent. NECK: Trachea midline. Non tender CARDIOVASCULAR: Regular rate and rhythm without murmurs, gallops, or rubs. RESPIRATORY: Clear to auscultation. Breath sounds equal bilaterally. No wheezes, rales, or rhonchi. GASTROINTESTINAL: Abdomen soft, non-tender, nondistended. EXTREMITIES: No edema or joint tenderness. BACK: Nontender without deformity or crepitance. No flank tenderness. NEURO: AOx3. SKIN: No rash or erythema of visible areas NIH Stroke Scale 1a. LOC: Patient is alert and keenly responsive (0) 1b. LOC Questions: Patient answers both LOC questions accurately (0) 1c. LOC Commands: Patient performs both tasks correctly (0) 2. Best Gaze: Normal (0) 3. Visual: No visual loss (0) 4. Facial palsy: Normal symmetrical movements (0) 5. Motor arm: No drift (0) 6. Motor leg: No drift (0) 7. Limb ataxia: Absent (0) 8. Sensory: Normal (0) 9. Best language: No aphasia; normal (0) 10. Dysarthria: Normal (0) 11. Extinction and inattention: No abnormality (0) NIHSS: 0 Initial Vital Signs Initial Vital Signs: Vital Signs Temperature 98.0 F 03/25/23 22:07 Pulse Rate 68 03/25/23 22:07 Respiratory Rate 16 03/25/23 22:07 Blood Pressure 123/60 03/25/23 22:07 Pulse Oximetry 98 03/25/23 22:07 Oxygen Delivery Method Room Air 03/25/23 22:07 Course Orders Ordered: ED Orders 03/25/23 22:03 CT head/brain wo con Stat Discontinued Medications Fluorescein Sodium (Fluorescein 1 Mg Strip) 1 mg EYE-RIGHT NOW ONE Stop: 03/25/23 22:04 Last Admin: 03/25/23 22:19 Dose: 1 mg Documented By: ABDIRIZAK Proparacaine HCl (Proparacaine 0.5% Ophth Cherelle) 1 drops EYE-RIGHT NOW ONE Stop: 03/25/23 22:04 Last Admin: 03/25/23 22:18 Dose: 1 drop Documented By: ABDIRIZAK Vital Signs Vital signs: Vital Signs - 8 hr 03/25/23 22:07 03/25/23 23:43 Temperature 98.0 F Pulse Rate 68 54 L Respiratory Rate 16 14 Blood Pressure 123/60 103/58 L Pulse Oximetry 98 97 Oxygen Delivery Method Room Air Room Air Medical Decision Making [facility] Narrative Medical decision making narrative: [62] year old patient presents with Right Eye floaters / flashers Multiple etiologies for patient's symptoms considered including, but not limited to: [retinal tear vs. vitreous hemorrhage vs. detachment vs. other] Prior Charts reviewed in our EMR Primary Historian: patient Imaging reviewed: Head CT with NAP Patient's history and physical exam reassuring and she is asymptomatic during duration of visit. Stroke thought unlikely given persistence of symptoms or other complaints. Head CT unremarkable. NIH stroke scale normal. Findings and discharge diagnosis discussed with patient/family followed by verbalization of understanding Return precautions discussed with patient/family whom verbalize understanding of diagnosis and plan Discharge Plan Departure Patient Disposition: Home Clinical Impression: Floaters in visual field Instructions: DI for Eye Floaters Activity Restrictions/Additional Instructions: *You have been diagnosed with [visual field floaters. As we discussed your history and physical exam are very reassuring. Your CT scan showed no abnormal finding.] *What to do: *Please continue to take your regular medications as directed. [ ] New medication prescriptions sent to your pharmacy: [ ] [ ] New medication written as a paper prescription [ ] No new medications given *Please follow up with Dr. Carrizales or Alfonzo at [facility] call tomorrow for an appointment. Let them know you were seen in the Emergency Department and that we ask that you be seen in follow up. We will electronically transmit a record of today's note *Return to Emergency Department if you should have any new, worsening or concerning symptoms, such as [fever greater than 101 F, shaking chills, worsening pain, persistent vomiting or other bothersome symptoms] Prescriptions: No Action turmeric 400 mg capsule PO Vitamin D3 1 tab DAILY Patient Comments: takes when remembers it Referrals: Jordy Carrizales MD [Physician] - Serafin Velazquez MD [Primary Care Provider] - Stand Alone Forms: Patient Portal/API
--- NOTE | 2023-03-25 22:03 | DI.CT.S_ITS ---
PROCEDURE: CT HEAD/BRAIN WO CON INDICATIONS: vision change TECHNIQUE: Noncontrast 4.5 mm thick angled axial sections acquired from the foramen magnum to the vertex, with coronal and sagittal reformats. For radiation dose reduction, the following was used: automated exposure control, adjustment of mA and/or kV according to patient size. COMPARISON: None. FINDINGS: Image quality: Excellent. CSF spaces: Basal cisterns are patent. No extra-axial fluid collections. Ventricles are normal in size and shape. Brain: No midline shift. No intracranial masses or hemorrhage. Cerda-white matter interface is normal. Skull and face: Calvarium and visualized facial bones are intact, without suspicious lesions. Sinuses: Visualized sinuses and mastoids are clear. IMPRESSION: 1. No acute intracranial process. Dictated by: Mara Wilhelm M.D. on 03/25/2023 at 22:31 Approved by: Mara Wilhelm M.D. on 03/25/2023 at 22:31
[2023-03-25 22:07] VITALS: BP 123/60; PULSE 68; RESP 16; TEMP 36.7; O2SAT 98; BMI 24.0
[2023-03-25] MEDS: PROPARACAINE 0.5% OPHTH SOL 1 DROPS EYE-RIGHT (22:18)
[2023-03-25] MEDS: FLUORESCEIN 1 MG STRIP EYE-RIGHT (22:19)
[2023-03-25 23:43] VITALS: BP 103/58; PULSE 54; RESP 14; O2SAT 97
== END 2023-03-25 23:48 | disposition home or self-care (01) ==
PROVIDERS: Emergency Provider Emergency Medicine; PCP Family Medicine
DX: H43.391 Other vitreous opacities, right eye (principal)
CPT/HCPCS: 70450; 99284

== ENCOUNTER → 2023-06-16 19:12 | Outpatient (CLI) | payer OTHER, MEDICAID, SELFPAY ==
--- NOTE | 2023-06-16 19:19 | DI.RAD.S_ITS ---
PROCEDURE: XR HAND RT MIN 3V INDICATIONS: 1st MCP swelling/tender -ROM; inj today+ snuffbox tender TECHNIQUE: 3 views of the hand(s) acquired. COMPARISON: None. FINDINGS: Bones: No fractures or dislocations. Mild arthritic changes at the 1st metacarpophalangeal joint. Carpal bones are normally aligned. No suspicious bony lesions. Soft tissues: No suspicious soft tissue calcifications. IMPRESSION: 1. No definite fracture. 2. If there is continued concern for occult fracture, immobilization and reimaging in 7-10 days is recommended. Dictated by: Radha Madden M.D. on 06/16/2023 at 20:36 Approved by: Radha Madden M.D. on 06/16/2023 at 20:38
== END ==
PROVIDERS: PCP Family Medicine; Referring Provider Student in an Organized Health Care Education/Training Program; Visit Provider Student in an Organized Health Care Education/Training Program
DX: S63.601A Unspecified sprain of right thumb, initial encounter (principal); S69.90XA Unspecified injury of unspecified wrist, hand and finger(s), initial encounter
CPT/HCPCS: 73130

== ENCOUNTER → 2023-07-24 10:59 | Outpatient (CLI) | payer OTHER, MEDICAID, SELFPAY ==
--- NOTE | 2023-07-24 11:00 | DI.RAD.S_ITS ---
PROCEDURE: XR HAND RT MIN 3V INDICATIONS: right thumb pain/injury TECHNIQUE: 3 views of the hand(s) acquired. COMPARISON: [facility], CR, XR HAND RT MIN 3V, 06/16/2023, 19:25. FINDINGS: Bones: No fractures or dislocations. Carpal bones are normally aligned. No suspicious bony lesions. Degenerative 1st metatarsophalangeal joint space narrowing. Generalized decreased osseous mineralization noted. Soft tissues: No suspicious soft tissue calcifications. IMPRESSION: Mild 1st MCP joint space narrowing Approved by: Jose A Norton M.D. on 07/24/2023 at 18:41
== END ==
PROVIDERS: PCP Family Medicine; Referring Provider Family Medicine; Visit Provider Family Medicine
DX: S63.601A Unspecified sprain of right thumb, initial encounter (principal); S69.90XA Unspecified injury of unspecified wrist, hand and finger(s), initial encounter; X58.XXXA Exposure to other specified factors, initial encounter
CPT/HCPCS: 73130

== ENCOUNTER → 2024-03-15 18:46 | Outpatient (CLI) | payer OTHER, SELFPAY ==
--- NOTE | 2024-03-15 18:47 | DI.RAD.S_ITS ---
PROCEDURE: XR ELBOW RT MIN 3V INDICATIONS: Right elbow injury TECHNIQUE: 3 views of the elbow were acquired. COMPARISON: None. FINDINGS: Bones: No fractures or dislocations. No suspicious bony lesions. Soft tissues: No elbow joint effusion. No suspicious soft tissue calcifications. IMPRESSION: No acute elbow fracture or signal joint effusion. Dictated by: Celso Duran M.D. on 03/15/2024 at 19:02 Approved by: Celso Duran M.D. on 03/15/2024 at 19:03
== END ==
LOC: RAD 18:47
PROVIDERS: PCP Family Medicine; Referring Provider Physician Assistant Surgical; Visit Provider Physician Assistant Surgical
DX: S59.901A Unspecified injury of right elbow, initial encounter (principal); X58.XXXA Exposure to other specified factors, initial encounter
CPT/HCPCS: 73080

== ENCOUNTER → 2024-07-21 12:21 | Outpatient (CLI) | payer BC, SELFPAY ==
--- NOTE | 2024-07-21 12:22 | DI.RAD.S_ITS ---
PROCEDURE: XR SHOULDER LT MIN 2V INDICATIONS: Pain in AC joint area - possible tendinitis vs OA TECHNIQUE: 3 views of the shoulder were acquired. COMPARISON: None. FINDINGS: Bones: No fractures or dislocations. No suspicious bony lesions. Visualized ribs appear intact. Soft tissues: Calcification adjacent to the superior lateral humeral head. IMPRESSION: No acute osseous abnormalities. Calcification adjacent to the superolateral humeral head, may represent calcific tendinopathy of the rotator cuff. No significant arthritic changes of the acromioclavicular joint. Dictated by: Kirk Navarrete M.D. on 07/22/2024 at 11:29 Approved by: Kirk Navarrete M.D. on 07/22/2024 at 11:32
== END ==
PROVIDERS: PCP Family Medicine; Referring Provider Physician Assistant; Visit Provider Physician Assistant
DX: M25.512 Pain in left shoulder (principal)
CPT/HCPCS: 73030

== ENCOUNTER → 2024-08-10 16:02 | Outpatient (CLI) | payer BC, SELFPAY ==
--- NOTE | 2024-08-10 16:04 | DI.RAD.S_ITS ---
PROCEDURE: XR CHEST 2V INDICATIONS: eval chronic cough TECHNIQUE: 2 views of the chest were acquired. COMPARISON: [facility], CR, XR CHEST 2V, 11/27/2022, 7:15. FINDINGS: Surgical changes and devices: None. Lungs and pleura: Lungs are clear. No pleural effusions or pneumothorax. Mediastinum: Mediastinal contours are normal. Heart size is normal. Bones and chest wall: No suspicious bony abnormalities. Soft tissues appear unremarkable. IMPRESSION: No source for chronic cough identified radiographically. Dictated by: Pato Griffin RRA Interpreted: Femi Ramirez MD on 08/10/2024 at 16:21 Transcribed by: HARRISON on 08/10/2024 at 16:21 Approved by: Femi Ramirez M.D. on 08/17/2024 at 9:56
[2024-08-10 17:30] LABS: Appearance Urine UA CLEAR; Bilirubin Urine UA NEGATIVE (NEGATIVE); Color Urine UA YELLOW; Glucose Urine UA NEGATIVE (Negative); Ketones Urine UA NEGATIVE (NEGATIVE); Leukocyte Esterase Urine UA NEGATIVE (NEGATIVE); Nitrite Urine UA NEGATIVE (Negative); Occult Blood Urine UA NEGATIVE (Negative); Protein Urine UA NEGATIVE (Negative); Urobilinogen Urine UA 0.2 E.U./dL (0.2)
[2024-08-10 17:38] LABS: Bacteria Urine None Seen; Culture Indicated Urine Cult Not Indicated; RBC Urine None Seen (0-5/HPF); Squamous Epithelial Cell Urine 0-1 /HPF (0-5/HPF); Urine Volume 10mL (spun); WBC Urine None Seen (0-5/HPF)
[2024-08-13 12:40] LABS: QuantiFERON Mitogen Value >10.00 IU/mL (.); QuantiFERON TB Gold Plus Negative (Negative)
[2024-08-15 11:36] LABS: Alder IgE <0.10 kU/L (Class 0); Alternaria alternata IgE <0.10 kU/L (Class 0); Aspergillus fumigatus IgE <0.10 kU/L (Class 0); Box Elder IgE <0.10 kU/L (Class 0); Cat Dander IgE <0.10 kU/L (Class 0); Cladosporium herbarum IgE <0.10 kU/L (Class 0); Cockroach IgE <0.10 kU/L (Class 0); Cottonwood IgE <0.10 kU/L (Class 0); D farinae IgE <0.10 kU/L (Class 0); D pteronyssinus IgE <0.10 kU/L (Class 0); Dog Dander IgE <0.10 kU/L (Class 0); Elm Tree IgE <0.10 kU/L (Class 0); Immunoglobulin E 12 IU/mL (6-495); Mountain Cedar IgE <0.10 kU/L (Class 0); Mouse Urine Proteins IgE <0.10 kU/L (Class 0); Nettle IgE <0.10 kU/L (Class 0); Oak Tree IgE <0.10 kU/L (Class 0); Penicillium chrysogen IgE <0.10 kU/L (Class 0); Pigweed, Common IgE <0.10 kU/L (Class 0); Ragweed, Short <0.10 kU/L (Class 0); Sheep Sorrel IgE <0.10 kU/L (Class 0); Silver Birch IgE <0.10 kU/L (Class 0); Timothy Grass IgE <0.10 kU/L (Class 0); Walnut Allery IgE < 0.10 kU/L (Class 0); White ash IgE <0.10 kU/L (Class 0)
== END ==
LOC: LAB 16:03
PROVIDERS: Family Provider Family Medicine; PCP Family Medicine; Referring Provider Registered Nurse Diabetes Educator; Visit Provider Registered Nurse Diabetes Educator
DX: R05.3 Chronic cough (principal); N39.3 Stress incontinence (female) (male); L08.9 Local infection of the skin and subcutaneous tissue, unspecified; W54.0XXA Bitten by dog, initial encounter
CPT/HCPCS: 36415; 71046; 81001; 82785; 86003; 86480

== ENCOUNTER → 2024-08-17 09:11 | Outpatient (CLI) | payer BC, SELFPAY ==
[2024-08-17 10:27] LABS: Add Manual Diff / Slide Review NO; Basophils Absolute Auto 0 /uL (0-100); Basophils Percent Auto 0.8 % (0-2); Eosinophils Absolute Auto 100 /uL (0-450); Hematocrit 39.8 % (36-46); Hemoglobin 13.2 g/dL (12.0-16.0); Lymphocytes Absolute Auto 1000 /uL (1100-4500); Lymphocytes Percent Auto 19.6 % (25-40); Mean Corpuscular HGB Conc 33.3 % (30-36); Mean Corpuscular Hemoglobin 31.2 PG (26-34); Mean Corpuscular Volume 93.7 fL (80-100); Monocytes Absolute Auto 400 /uL (0-900); Monocytes Percent Auto 6.7 % (3-14); Neutrophils Absolute Auto 3800 /uL (1500-7000); Neutrophils Percent Auto 71.9 % (50-75); Platelet Count 199 X10^3/uL (150-400); Red Blood Cell Count 4.24 X10^6/uL (4.0-5.2); Red Cell Distribution Width 13.1 % (11.6-14.8); White Blood Cell Count 5.3 X10^3/uL (4.5-11.0)
[2024-08-17 11:35] LABS: Alanine Aminotransferase 20 IU/L (<35); Albumin 4.1 g/dL (3.5-5.0); Albumin Globulin Ratio 1.3 (1.0-2.8); Alkaline Phosphatase 73 U/L (38-126); Aspartate Aminotransferase 29 IU/L (14-36); BUN Creatinine Ratio 21.3 (6-22); Bilirubin Total 1.1 mg/dL (0.2-1.3); Blood Urea Nitrogen 20 mg/dL (7-17); Calcium 9.8 mg/dL (8.4-10.2); Carbon Dioxide 28 mmol/L (22-32); Chloride 107 mmol/L (98-107); Cholesterol 176 mg/dL (140-199); Estimated Glomerular Filt Rate > 60 mL/min (>60); Globulin 3.1 g/dL (1.7-4.1); Glucose 87 mg/dL (80-110); HDL Cholesterol 96 mg/dL (40-60); HEMOLYSIS < 15 (0-50); LDL Cholesterol Calculated 72 mg/dL (<100); Potassium 4.3 mmol/L (3.4-5.1); Sodium 139 mmol/L (137-145); Total Protein 7.2 g/dL (6.3-8.2); Triglycerides 41 mg/dL (35-150)
[2024-08-17 11:52] LABS: TSH w/ Reflex to FT4 1.21 uIU/mL (0.47-4.68)
[2024-08-17 12:40] LABS: Creatinine Urine Random 169.23 mg/dL
[2024-08-17 12:45] LABS: Microalbumin Urine Random < 0.6 mg/dL (0-1.6)
[2024-08-18 03:38] LABS: Apolipoprotein B 72 mg/dL (<90)
== END ==
PROVIDERS: Family Provider Family Medicine; PCP Family Medicine; Referring Provider Family Medicine; Visit Provider Family Medicine
DX: E66.3 Overweight (principal); E55.9 Vitamin D deficiency, unspecified; R06.09 Other forms of dyspnea; K62.5 Hemorrhage of anus and rectum; R05.3 Chronic cough; D72.810 Lymphocytopenia; R00.2 Palpitations
CPT/HCPCS: 36415; 80053; 80061; 82043; 82172; 82570; 84443; 85025

== ENCOUNTER → 2024-08-18 08:02 | Outpatient (CLI) | payer BC, SELFPAY | LOC: CAR 08:03 | PROVIDERS: Family Provider Family Medicine; PCP Family Medicine; Referring Provider Family Medicine; Visit Provider Family Medicine | DX: R00.2 Palpitations (principal) | CPT/HCPCS: 93246 ==

== ENCOUNTER 2024-09-20 11:30 | Outpatient (RCR) | payer BC, SELFPAY ==
--- NOTE | 2024-08-29 07:39 | PT-OP ANOTE ---
Pt arrives after 0735 for eval that started at 0730 and pt was alerted to arrive at 0715 for paperwork. PT ed pt that she will need to fill out paperwork today and return at next scheduled appointment for evaluation.
--- NOTE | 2024-09-05 10:38 | PT.OIE ---
Current Diagnoses Pain in left shoulder (09/05/24) Calcific tendinitis of left shoulder (09/05/24) Past Medical History (Last Reviewed 08/17/24 @ 11:50 by Nichole De Anda PA-C) Acute low back pain due to trauma Acute neck pain Acute pain of left hip Acute thoracic back pain Left wrist pain Low back pain radiating to left lower extremity Muscle spasm Neck pain Overweight (BMI 25.0-29.9) Post-traumatic headache Vitamin D deficiency Wound, open, ear, Eustachian tube Past Surgical History (Last Reviewed 08/17/24 @ 11:50 by Nichole De Anda PA-C) History of dilatation and curettage History of ear surgery Hx of knee surgery Visit Care Team Role Provider Type Serafin Velazquez MD Attending Provider Physician Family Provider Primary Care Provider Referring Provider Specialty: Family Practice Address: [address] [place] [address] Email: [email or web address] Physical Therapy Initial Evaluation PT-OP-A Visit Information Start: 08/25/24 11:37 Freq: Status: Active Protocol: Document 09/05/24 07:26 MB (Rec: 09/05/24 08:17 LEONID [id number]) Out-Patient Physical Therapy Visit Information Visit Information Visit Type Initial Evaluation Visit Note Progress note by 10/06/24 Visit Start Time 07:26 Visit Stop Time 08:06 Visit Number 1 Number of COMPTOMETER OPERATOR Visits 0 Evaluation Information Evaluation Date 09/05/24 PT-OP-B Current Condition Start: 08/25/24 11:37 Freq: Status: Active Protocol: Document 09/05/24 07:26 MB (Rec: 09/05/24 08:17 MB [id number]) Current Condition History of Current Condition Onset Date May 2024 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 Her pain is worse with mopping. Pt sleeps on her back and occ on her side. Pt states that her hands get numb when she sleeps on her side and her left foot has pain hurts when she sleeps at night. She had one other issue with the left leg being numb after epidural after child many years ago. Her left leg occ gets tingling . She has back issues. Pt has not been able to work a whole lot. She worked 4 days this month so far and 10 days total last month. The work really isn't there. Pt occ gets numbness or tingling in her hands when she drives or mayco her hair. Pt occ has neck pain. She gets burning between shoulder blades with lifting overhead. Pt was told she has OA in neck and osteopenia. She has a shot in her right shoulder before and it was helpful. She has had PT in the past for back, hips and wrist . Pt has been through recent trauma with loss and murder of her daughter's dogs. Pt does c/o right rib/side chest pain, anxiety and that occ she is having trouble with breathing when walking. She just did EKG and heart monitor and is waiting for results. Prior Treatments and Tests X-ray 07/21/24: IMPRESSION: No acute osseous abnormalities . Calcification adjacent to the superolateral humeral head, may represent calcific tendinopathy of the rotator cuff. No significant arthritic changes of the acromioclavicular joint. Treatment Goals Patient/Caregiver Goals To get movement or something to help with left shoulder pain. PT-OP-C Subjective Start: 08/25/24 11:37 Freq: Status: Active Protocol: Document 09/05/24 07:26 MB (Rec: 09/05/24 08:17 MB [id number]) OP-PT Subjective Patient Comments Patient Comments See history of current condition Patient Questionnaires Quick Dash- Upper Extremity Quick Dash UE Score 25 Quick Dash UE Impairment 20 to 39% Impaired (Score 20- 39) PT-OP-J Posture/Palpation/Skin Start: 08/25/24 11:37 Freq: Status: Active Protocol: Document 09/05/24 07:26 MB (Rec: 09/05/24 08:17 MB [id number]) Posture Evaluation Comments Posture Comments Standing in socks: left shoulder is mildly higher than the right, B shoulder rolled forward and left more than right, left greater than right scapular winging, left iliac crest mildly higher than the right, decreased spinal curvature with mild lordosis lower thoracic spine and lumbar spine, B valgus, increased lateral WB right foot compared to left. Pt presents with pain at left AC joint area and around biceps tendon insertion during manual palpation and will benefit from more palpation in future treatments during manual work PT-OP-K Range of Motion Start: 08/25/24 11:37 Freq: Status: Active Protocol: Document 09/05/24 07:26 MB (Rec: 09/05/24 08:17 MB [id number]) Cervical Spine Range of Motion Cervical Spine Active Testing Position Standing Flexion 50 Extension 30 Rotation Left 60 Rotation Right 50 Comments Pt reports some discomfort with extension on the right side of neck Shoulder Goniometric Range of Motion Shoulder Left Shoulder ROM WFL Yes Testing Position Standing Flexion 170 Extension 55 Abduction 163 Internal Rotation Behind Back (text) T5 Comments Left scapular winging noted again Right Shoulder ROM WFL Yes Testing Position Standing Flexion 175 Extension 55 Abduction 173 Internal Rotation Behind Back (text) T6 PT-OP-M Strength Start: 08/25/24 11:37 Freq: Status: Active Protocol: Document 09/05/24 07:26 MB (Rec: 09/05/24 08:17 MB [id number]) Shoulder Strength Shoulder Manual Muscle Testing Left Flexion 5 Normal Abduction (C5) 5 Normal External Rotation 5 Normal Internal Rotation 5 Normal Right Flexion 5 Normal Abduction (C5) 5 Normal External Rotation 5 Normal Internal Rotation 5 Normal Elbow/Forearm Strength Elbow and Forearm Manual Muscle Testing Bilateral Flexion (C6) 5 Normal Extension (C7) 5 Normal Comments Pt reports trigger finger right hand PT-OP-Q Treatments Start: 08/25/24 11:37 Freq: Status: Active Protocol: Document 09/05/24 07:26 MB (Rec: 09/05/24 10:38 MB [id number]) Self-Care/Home Management Treatment Education Patient Education Body Mechanics,Joint Protection,Pain Management Other Education Given recent trauma, PT ed pt that her homework is to find one or more things that help her relax for self-care such as going for a walk, visiting a friend, listening to movement and ed pt that PT can work on Buteyko breathing next treatment date, ed in the benefits of ice and heat and proper sleeping position. Pt c /o right chest pain, states x- ray was negative and she has discomfort with breathing and light coughing and she has some tension right lateral proximal ribs and ed pt that she should follow up with primary doctor about this given c/o SOB and anxiety Activities Self-Care/Home Management Activities See above comments PT-OP-T Assessment and Plan Start: 08/25/24 11:37 Freq: Status: Active Protocol: Document 09/05/24 07:26 MB (Rec: 09/05/24 10:38 MB [id number]) Physical Therapy Assessment Rehab Potential Rehabilitation Potential Good Evaluation Complexity Number of Personal Factors/Comorbidities 1-2 Number of Body Systems Impaired 1-2 Clinical Presentation at Evaluation Evolving Impairments Impairments Activity Tolerance, Coordination,Functional Activities,Functional Mobility ,Pain,Posture,ROM,Sensation, Soft Tissue Mobility Goals 3 Impairment Decreased left shoulder flexion and abduction E Commerce Director Goal (LTG) Pt will present with improved AROM left shoulder flexion and abduction equal to right to improve functional range and ability to do housework. LTG Duration 8 weeks 2 Impairment Lack of HEP E Commerce Director Goal (LTG) Pt will perform HEP with I including breathing, postural, flexibility and strengthening exercises to improve pain and improve function. LTG Duration 8 weeks 1 Impairment QuickDASH score reflects 25% impairment [facility] Goal (LTG) Pt will present with QuickDASH score reflecting no more than 10% impairment to improve quality of life. LTG Duration 8 weeks Assessment Summary Assessment Pt is a 64 y/o female presenting with 2-3 months of left shoulder pain. During history taking, her reports are vague and when PT asks about home situation, she describes recent trauma where her daughter's dogs went missing and were found murdered. PT provides emotional support and encouragement during assessment. Pt presents with discomfort with cervical extension and reports history of head injury and traction treatment. She has decreased AROM left shoulder flexion and abduction compared to right and notable left scapula winging. She has tenderness near the left AC joint and biceps tendon and will more fully assess in manual treatments. She c/o right sided CP with coughing, breathing and lateral right rib palpation today. It is possible that pt's right sided rib/chest pain and reports of anxiety are exacerbated by recent trauma but PT encourages pt to follow-up with PCP about this. She reports recent negative chest x-ray (there is an image in chart but no report), recent EKG and heart monitor recording. This may be a barrier to PT. Pt will benefit from PT for postural, breathing, flexibility and strengthening work. 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 This may also be a barrier to PT. Physical Therapy Plan Frequency and Duration Frequency of Treatment 1-2x/wk Duration of treatment (weeks) 8 Plan of Care Start Date 09/05/24 Plan of Care End Date 11/07/24 Therapeutic Interventions Therapeutic Interventions Balance Training,Canalithic Repositioning,Home Exercise Program,Joint Mobilizations, Manual Therapy,Neuromuscular Re-education,Patient/Caregiver Education,Self-Care/Home Management,Soft Tissue Mobilization,Taping, Therapeutic Activities, Therapeutic Exercises Modalities Cold Pack/Ice Massage,Electric Stimulation,Hot Packs, Ultrasound Next Visit Focus/Plan Next Note Type Treatment Note Next Visit Plan Initiate Buteyko breathing and gentle manual work Future treatments: gentle manual work, gentle cervical range, scapular retraction and shoulder and thoracic range activities such as open book and then progressive intrascapular and shoulder strengthening, consider KT
--- NOTE | 2024-09-07 08:17 | PT.OTN ---
Current Diagnoses Pain in left shoulder (09/07/24) Calcific tendinitis of left shoulder (09/07/24) Physical Therapy Treatment Note PT-OP-A Visit Information Start: 08/25/24 11:37 Freq: Status: Active Protocol: Document 09/07/24 07:32 MB (Rec: 09/07/24 07:38 MB [id number]) Out-Patient Physical Therapy Visit Information Visit Information Visit Type Treatment Note Visit Note Progress note by 10/06/24 Visit Start Time 07:32 Visit Stop Time 08:12 Visit Number 2 Number of INSTRUCTIONAL MATERIALS DIRECTOR Visits 0 Evaluation Information Evaluation Date 09/05/24 PT-OP-B Current Condition Start: 08/25/24 11:37 Freq: Status: Active Protocol: Document 09/05/24 07:26 MB (Rec: 09/05/24 08:17 MB [id number]) Current Condition History of Current Condition Onset Date May 2024 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 Her pain is worse with mopping. Pt sleeps on her back and occ on her side. Pt states that her hands get numb when she sleeps on her side and her left foot has pain hurts when she sleeps at night. She had one other issue with the left leg being numb after epidural after child many years ago. Her left leg occ gets tingling . She has back issues. Pt has not been able to work a whole lot. She worked 4 days this month so far and 10 days total last month. The work really isn't there. Pt occ gets numbness or tingling in her hands when she drives or mayco her hair. Pt occ has neck pain. She gets burning between shoulder blades with lifting overhead. Pt was told she has OA in neck and osteopenia. She has a shot in her right shoulder before and it was helpful. She has had PT in the past for back, hips and wrist . Pt has been through recent trauma with loss and murder of her daughter's dogs. Pt does c/o right rib/side chest pain, anxiety and that occ she is having trouble with breathing when walking. She just did EKG and heart monitor and is waiting for results. Prior Treatments and Tests X-ray 07/21/24: IMPRESSION: No acute osseous abnormalities . Calcification adjacent to the superolateral humeral head, may represent calcific tendinopathy of the rotator cuff. No significant arthritic changes of the acromioclavicular joint. Treatment Goals Patient/Caregiver Goals To get movement or something to help with left shoulder pain. PT-OP-C Subjective Start: 08/25/24 11:37 Freq: Status: Active Protocol: Document 09/07/24 07:32 MB (Rec: 09/07/24 07:38 MB [id number]) OP-PT Subjective Patient Comments Patient Comments Pt con't with c/o right sided lateral rib pain and pain in right front chest and posterior ribs. She has pain with coughing, moving the dog, etc. PT-OP-J Posture/Palpation/Skin Start: 08/25/24 11:37 Freq: Status: Active Protocol: Document 09/05/24 07:26 MB (Rec: 09/05/24 08:17 MB [id number]) Posture Evaluation Comments Posture Comments Standing in socks: left shoulder is mildly higher than the right, B shoulder rolled forward and left more than right, left greater than right scapular winging, left iliac crest mildly higher than the right, decreased spinal curvature with mild lordosis lower thoracic spine and lumbar spine, B valgus, increased lateral WB right foot compared to left. Pt presents with pain at left AC joint area and around biceps tendon insertion during manual palpation and will benefit from more palpation in future treatments during manual work PT-OP-K Range of Motion Start: 08/25/24 11:37 Freq: Status: Active Protocol: Document 09/05/24 07:26 MB (Rec: 09/05/24 08:17 MB [id number]) Cervical Spine Range of Motion Cervical Spine Active Testing Position Standing Flexion 50 Extension 30 Rotation Left 60 Rotation Right 50 Comments Pt reports some discomfort with extension on the right side of neck Shoulder Goniometric Range of Motion Shoulder Left Shoulder ROM WFL Yes Testing Position Standing Flexion 170 Extension 55 Abduction 163 Internal Rotation Behind Back (text) T5 Comments Left scapular winging noted again Right Shoulder ROM WFL Yes Testing Position Standing Flexion 175 Extension 55 Abduction 173 Internal Rotation Behind Back (text) T6 PT-OP-M Strength Start: 08/25/24 11:37 Freq: Status: Active Protocol: Document 09/05/24 07:26 MB (Rec: 09/05/24 08:17 MB [id number]) Shoulder Strength Shoulder Manual Muscle Testing Left Flexion 5 Normal Abduction (C5) 5 Normal External Rotation 5 Normal Internal Rotation 5 Normal Right Flexion 5 Normal Abduction (C5) 5 Normal External Rotation 5 Normal Internal Rotation 5 Normal Elbow/Forearm Strength Elbow and Forearm Manual Muscle Testing Bilateral Flexion (C6) 5 Normal Extension (C7) 5 Normal Comments Pt reports trigger finger right hand PT-OP-Q Treatments Start: 08/25/24 11:37 Freq: Status: Active Protocol: Document 09/07/24 07:32 MB (Rec: 09/07/24 07:40 MB [id number]) Therapeutic Exercises Supine Exercises Buteyko breathing Supine Exercise Name Pt supine with head and legs supported, ed in nasal breathing and hold Comments Assessment for details today Neuro Re-Education Treatment Balance Activities Diaphragm breathing Comments Diaphragm breathing to promote parasympathetic engagement, relaxation and rest and pt performs with pillow on stomach today and in congruence with Buteyko Breathing PT-OP-T Assessment and Plan Start: 08/25/24 11:37 Freq: Status: Active Protocol: Document 09/07/24 07:32 MB (Rec: 09/07/24 07:38 MB [id number]) Physical Therapy Assessment Rehab Potential Rehabilitation Potential Good Evaluation Complexity Number of Personal Factors/Comorbidities 1-2 Number of Body Systems Impaired 1-2 Clinical Presentation at Evaluation Evolving Impairments Impairments Activity Tolerance, Coordination,Functional Activities,Functional Mobility ,Pain,Posture,ROM,Sensation, Soft Tissue Mobility Goals 3 Impairment Decreased left shoulder flexion and abduction Library Circulation Clerk Goal (LTG) Pt will present with improved AROM left shoulder flexion and abduction equal to right to improve functional range and ability to do housework. LTG Duration 8 weeks 2 Impairment Lack of HEP [facility] Goal (LTG) Pt will perform HEP with I including breathing, postural, flexibility and strengthening exercises to improve pain and improve function. LTG Duration 8 weeks 1 Impairment QuickDASH score reflects 25% impairment [facility] Goal (LTG) Pt will present with QuickDASH score reflecting no more than 10% impairment to improve quality of life. LTG Duration 8 weeks Assessment Summary Assessment Pt con't with cough, c/o right sided chest pain and PT re-ed to follow-up with PCP about this. She does see pulmonary clinic 09/13. Whole treatment working on nasal, Buteyko, diaphragm breathing to improve relaxation, self-care and pain. PT is unable to accurrate reading in pulse ox d/t cold fingers. 6 reps today and pt performs diaphragm breathing with book on her stomach. 1st rep: 13 sec controlled pause; 2nd rep: 10 sec. Pt has some coughing after controlled pause. 3rd rep: 12 sec. 4th rep: 8 sec hold, some clearing of throat afterwards. 5th rep: 14 sec. Final rep: 7 sec and coughing. Pt's left shoulder feels better after treatment and right side is similar. PT is concerned about pleuritic pain right side. She will see pulmonology next week. Physical Therapy Plan Frequency and Duration Frequency of Treatment 1-2x/wk Duration of treatment (weeks) 8 Plan of Care Start Date 09/05/24 Plan of Care End Date 11/07/24 Therapeutic Interventions Therapeutic Interventions Balance Training,Canalithic Repositioning,Home Exercise Program,Joint Mobilizations, Manual Therapy,Neuromuscular Re-education,Patient/Caregiver Education,Self-Care/Home Management,Soft Tissue Mobilization,Taping, Therapeutic Activities, Therapeutic Exercises Modalities Cold Pack/Ice Massage,Electric Stimulation,Hot Packs, Ultrasound Other Referrals/Consults Referrals/Consults Recommended Follow-up with PCP about right sided chest and rib pain Next Visit Focus/Plan Next Note Type Treatment Note Next Visit Plan Gentle manual work Future treatments: gentle manual work, gentle cervical range, scapular retraction and shoulder and thoracic range activities such as open book and then progressive intrascapular and shoulder strengthening, consider KT
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
--- NOTE | 2024-09-26 07:13 | PT-OP ANOTE ---
Front office sends email to cancel appointment d/t no auth for today's 0900 visit. PT calls patient and speaks with pt to let her know. Pt will attend next appointment on 10/03/24.
--- NOTE | 2024-10-03 07:11 | PT-OP ANOTE ---
PT receives an email that more of patient's visits are cancelled d/t authorization/visit issue. Will need to have progress note performed on her next visit she attends.
--- NOTE | 2024-10-17 07:47 | PT-OP ANOTE ---
Pt has not been seen in 41 days by PT or 26 days by APPLICATION DEVELOPMENT INTERN given holiday and insurance authorization issues. She is getting close to being out of POC. If her appointment tomorrow is canceled, will d/c outpatient PT. If she can attend, will perform progress note.
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
== END 2024-10-26 10:42 | disposition home or self-care (01) ==
LOC: PHYS 11:30
PROVIDERS: Family Provider Family Medicine; PCP Family Medicine; Referring Provider Family Medicine; Visit Provider Family Medicine
DX: M25.512 Pain in left shoulder (principal); M75.32 Calcific tendinitis of left shoulder
CPT/HCPCS: 97110; 97112; 97140; 97161; 97535

== ENCOUNTER → 2024-09-27 08:37 | Outpatient (CLI) | payer BC, SELFPAY | LOC: RESP 08:37 | PROVIDERS: Family Provider Family Medicine; PCP Family Medicine; Referring Provider Student in an Organized Health Care Education/Training Program; Visit Provider Student in an Organized Health Care Education/Training Program | DX: R05.3 Chronic cough (principal); R94.2 Abnormal results of pulmonary function studies | CPT/HCPCS: 94060; 94726; 94729 ==